=== PATIENT | male | born 1960 | race American Indian/Alaskan Native ===

== ENCOUNTER 2017-04-12 02:12 | Observation (INO) | payer MEDICAID ==
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
[2017-04-12 03:32] LABS: ALB/GLOB RATIO 1.2 (1.1-1.8); ALKALINE PHOSPHATASE 73 U/L (38-133); ALT/SGPT 36 U/L (7-56); AST/SGOT 25 U/L (15-59); BILIRUBIN,TOTAL 1.1 mg/dL (0.2-1.3); BLOOD UREA NITROGEN 27 mg/dL (7-21); CALCIUM 9.1 mg/dL (8.4-10.5); CARBON DIOXIDE 27 mmol/L (21-33); CHLORIDE 100 mmol/L (98-107); GFR AFRICAN-AMERICAN 50; GLUCOSE,RANDOM 128 mg/dL (70-110); POTASSIUM 3.9 mmol/L (3.6-5.0); SODIUM 140 mmol/L (132-148); TOTAL PROTEIN 7.4 g/dL (5.8-8.3)
[2017-04-12 03:45] LABS: TROPONIN I < 0.01 ng/mL
[2017-04-12 03:51] LABS: BASO # 0.01 K/mm3 (0.0-2.0); BASO % 0.1 % (0.0-3.0); EOS # 0.1 (0.0-0.7); EOS % 0.8 % (1.5-5.0); GRAN # 7.41 (1.4-6.5); GRAN % 69.7 % (50.0-68.0); HEMATOCRIT 38.5 % (42.0-52.0); LYMPH % 19.2 % (22.0-35.0); MEAN CELL VOLUME 79.4 fl (80.0-105.0); MEAN CORPUSCULAR HGB CONC 32.7 g/dl (31.0-37.0); MEAN PLATELET VOLUME 11.1 fl (7.0-11.0); MONO # 1.1 (0.1-0.6); MONO % 10.2 % (1.0-6.0); RED CELL DISTRIBUTION WIDTH 16.3 % (11.5-14.5); WHITE BLOOD COUNT 10.6 10^3/ul (4.5-11.0)
--- NOTE | 2017-04-12 04:17 | CT ---
EXAM: CT Head Without Intravenous Contrast CLINICAL HISTORY: 56 years old, male; Signs and symptoms; Dizziness; Patient HX: Possible head truama during syncope TECHNIQUE: Axial computed tomography images of the head/brain without intravenous contrast. All CT scans at this facility use one or more dose reduction techniques, viz.: automated exposure control; ma/kV adjustment per patient size (including targeted exams where dose is matched to indication; i.e. head); or iterative reconstruction technique. COMPARISON: No relevant prior studies available. FINDINGS: Brain: [id number] atrophy. No intracranial hemorrhage. No mass. Several scattered foci of decreased attenuation within periventricular/subcortical white matter. No definite edema. Ventricles: No hydrocephalus. Bones/joints: No calvarial fracture. Deformity of nasal bones, likely chronic. Soft tissues: Unremarkable. Sinuses: No acute sinusitis. Mastoid air cells: No mastoid effusion. Orbits: Unremarkable as visualized. IMPRESSION: 1. No intracranial hemorrhage. 2. Nonspecific white matter changes. Acute infarction may be CT occult within first 24 hours. If a focal deficit persists, consider followup CT or MRI for further evaluation. 3. Incidental/non-acute findings are described above.
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
[2017-04-12 06:23] LABS: URINE BILIRUBIN NEGATIVE (NEGATIVE); URINE BLOOD MODERATE (NEGATIVE); URINE GLUCOSE (UA) NEGATIVE (NEGATIVE); URINE KETONE NEGATIVE (NEGATIVE); URINE LEUKOCYTE ESTERASE SMALL Leu/uL (NEGATIVE); URINE PROTEIN 30 mg/dL (<30 mg/dL)
[2017-04-12 06:31] LABS: URINE APPEARANCE SL CLOUDY (CLEAR); URINE COLOR YELLOW (YELLOW)
[2017-04-12] MEDS ORDERED: Sodium Chloride 0.9% 1,000 ML IV STA (06:38)
[2017-04-12 07:05] LABS: URINE BACTERIA MANY (NEG)
[2017-04-12] MEDS: Sodium Chloride 0.9% 1,000 ML IV SCH ×2 (10:51→21:53)
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
[2017-04-12 12:42] LABS: BLOOD UREA NITROGEN 19 mg/dL (7-21); CALCIUM 8.5 mg/dL (8.4-10.5); CARBON DIOXIDE 25 mmol/L (21-33); CHLORIDE 103 mmol/L (98-107); GFR AFRICAN-AMERICAN > 60; GLUCOSE,RANDOM 192 mg/dL (70-110); POTASSIUM 3.5 mmol/L (3.6-5.0); SODIUM 139 mmol/L (132-148)
[2017-04-12 12:51] LABS: TROPONIN I < 0.01 ng/mL
[2017-04-12] MEDS ORDERED: Potassium Chloride 40 mEq/30 ml LIQ UD PO ONE (12:57)
--- NOTE | 2017-04-12 13:23 | CARD ---
APPROVED REPORT EKG Measurement Heart [id number] <Conclusion> Normal sinus rhythm Incomplete right bundle branch block Left anterior fascicular block Abnormal ECG
--- NOTE | 2017-04-12 13:41 | CARD ---
APPROVED REPORT EXAM: Two-dimensional and M-mode echocardiogram with Doppler and color Doppler. INDICATION 2D DIMENSIONS IVSd1.1 (0.7-1.1cm)LVDd5.1 (3.9-5.9cm) PWd1.1 (0.7-1.1cm)LVDs2.9 (2.5-4.0cm) FS (%) 44.1 %LVEF (%)75.1 (>50%) M-Mode DIMENSIONS Left Atrium (MM)4.20 (2.5-4.0cm)Aortic Root3.40 (2.2-3.7cm) Aortic Cusp Exc.2.10 (1.5-2.0cm) Aortic Valve AoV Peak Apdagnjx601.0cm/Soren Peak GR.10mmHg Mitral Valve MV E Dcaxcfvx01.8cm/sMV A Ynnqtwbd217.0cm/sE/A ratio0.8 TDI Lateral E' Peak V11.20cm/sMedial E' Peak V8.48cm/sE/Lateral E'8.3 E/Medial E'10.9 Tricuspid Valve TR Peak Vtcxpmss927is/sRAP [id number] Peak Gr.55mmHg [id number] LEFT VENTRICLE The left ventricle is normal size. There is normal left ventricular wall thickness. The left ventricular function is normal.EF-60-65% There is normal LV segmental wall motion. Transmitral Doppler flow pattern is Grade III-reversible restrictive diastolic dysfunction. No left ventricle thrombus noted on this study. There is no ventricular septal defect visualized. There is no left ventricular aneurysm. There is no mass noted in the left ventricle. RIGHT VENTRICLE The right ventricle is mildly dilated. There is normal right ventricular wall thickness. Systolic function is mildly reduced. ATRIA The left atrium is mildly dilated. The right atrium size is normal. The interatrial septum is intact with no evidence for an atrial septal defect. AORTIC VALVE The aortic valve is normal in structure. No aortic regurgitation is present. There is no aortic valvular stenosis. There is no aortic valvular vegetation. MITRAL VALVE The mitral valve is thickened but opens well. Mitral regurgitation is trace. There is no mitral valve stenosis. There is no evidence of mitral valve prolapse. TRICUSPID VALVE The tricuspid valve leaflets are thickened , but open well. There is moderate tricuspid regurgitation.RVSP-65 mmof h g. There is no tricuspid valve stenosis. There is no tricuspid valve prolapse or vegetation. PULMONIC VALVE The pulmonary valve is normal in structure. There is trace pulmonic valvular regurgitation. There is no pulmonic valvular stenosis. GREAT VESSELS The aortic root is normal in size. The ascending aorta is normal in size. The pulmonary artery is normal. The IVC is normal in size and collapses >50% with inspiration. PERICARDIAL EFFUSION There is no pleural effusion. There is no pericardial effusion. <Conclusion> The left ventricle is normal size. There is normal left ventricular wall thickness. The left ventricular function is normal.EF-60-65% Mitral regurgitation is trace. There is moderate tricuspid regurgitation.RVSP-65 mmof h g.
[2017-04-12] MEDS: cefTRIAXone 1 gm 1 GM/100 ML BAG IVPB SCH (14:14)
[2017-04-12 14:54] VITALS: BMI 19.5
[2017-04-12 18:31] LABS: TROPONIN I < 0.01 ng/mL
--- NOTE | 2017-04-12 23:53 | CON ---
DATE: 04/12/2017 CONSULT SERVICE: Cardiology. REASON FOR CONSULTATION: Cardiac evaluation, admitted with syncope. BRIEF CLINICAL HISTORY: This is a 56-year-old male with past medical history significant for hypertension, noncompliance with medication, did not get pills for more than a month. Admitted with syncope. 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 He said before that he started feeling dizzy and he passed out and coworkers noted that he was out for a minute or so, so brought him here. Thr patient denies any chest pain, shortness of breath, or any palpitations. PAST MEDICAL HISTORY: Significant for hypertension, questionable history of CVA, last medication he took it a month ago because he ran out, so did not fill the refill. FAMILY HISTORY: Noncontributory. SOCIAL HISTORY: He smokes a pack, lasts for 1 weeks, drinks 24 ounces of beer, 2 to 3 cans of beer every weekend. History of substance abuse of cocaine, last use of cocaine 1 month ago. REVIEW OF SYSTEMS: As per HPI. PHYSICAL EXAMINATION VITAL SIGNS: Temperature afebrile, heart rate 60, blood pressure 107/67. HEENT: PERRLA. Extraocular muscles intact. NECK: Supple. No carotid bruit or thyromegaly. CHEST: Clear to auscultation. HEART: S1 and S2, regular. ABDOMEN: Soft. EXTREMITIES: Clubbing and cyanosis negative. LABORATORY DATA: Blood workup as follows: WBC 10.6, hemoglobin 12.6, hematocrit 38.5, platelet count 166. Chemistry shows sodium 140, potassium 3.9, chloride 100, carbon dioxide of 27, anion gap of 15, BUN 27, creatinine 1.7, troponin 0.01. EKG shows normal sinus rhythm, rate of 55, incomplete right bundle, left anterior hemiblock. IMPRESSION: Syncope, dehydration possibly, rule out orthostatic hypotension, rule out structural heart disease, so far troponin negative. RECOMMENDATIONS: For his orthostatic hypotension, continue IV fluid. Echo to rule out any structural heart disease, lipid profile, TSH, hemoglobin A1c. Further recommendations depends on hospital course. We will do repeat SMA-7 to see BUN and creatinine and potassium. We will follow with you. Thank you Dr. Sibley for providing me the opportunity in taking care of the patient, Luis Martines. Lucina Madrid MD
[2017-04-13] MEDS ORDERED: Pantoprazole 40 mg EC Tab PO SCH (06:00)
[2017-04-13 06:21] VITALS: O2SAT 99
[2017-04-13 07:41] LABS: BASO # 0.01 K/mm3 (0.0-2.0); BASO % 0.1 % (0.0-3.0); EOS # 0.1 (0.0-0.7); EOS % 1.8 % (1.5-5.0); GRAN # 4.5 (1.4-6.5); GRAN % 61.5 % (50.0-68.0); HEMATOCRIT 36.8 % (42.0-52.0); LYMPH # 1.9 (1.2-3.4); LYMPH % 25.4 % (22.0-35.0); MEAN CORPUSCULAR HEMOGLOBIN 25.4 pg (25.0-35.0); MEAN CORPUSCULAR HGB CONC 31.8 g/dl (31.0-37.0); MEAN PLATELET VOLUME 10.9 fl (7.0-11.0); MONO # 0.8 (0.1-0.6); MONO % 11.2 % (1.0-6.0); RED CELL DISTRIBUTION WIDTH 16.5 % (11.5-14.5); WHITE BLOOD COUNT 7.3 10^3/ul (4.5-11.0)
[2017-04-13 07:52] LABS: CHOLESTEROL 73 mg/dL (130-200); MAGNESIUM 1.9 mg/dL (1.7-2.2); PHOSPHOROUS 2.3 mg/dL (2.5-4.5)
[2017-04-13 08:04] LABS: ALKALINE PHOSPHATASE 57 U/L (38-133); ALT/SGPT 29 U/L (7-56); AST/SGOT 25 U/L (15-59); BILIRUBIN,TOTAL 0.7 mg/dL (0.2-1.3); BLOOD UREA NITROGEN 12 mg/dL (7-21); CALCIUM 8.3 mg/dL (8.4-10.5); CARBON DIOXIDE 26 mmol/L (21-33); CHLORIDE 107 mmol/L (98-107); GFR AFRICAN-AMERICAN > 60; GLUCOSE,RANDOM 121 mg/dL (70-110); POTASSIUM 4.2 mmol/L (3.6-5.0); SODIUM 139 mmol/L (132-148); TOTAL PROTEIN 6.1 g/dL (5.8-8.3)
[2017-04-13] MEDS: cefTRIAXone 1 gm 1 GM/100 ML BAG IVPB SCH (09:50)
[2017-04-13 12:54] VITALS: BP 146/74; PULSE 40; RESP 18; TEMP 98.5
[2017-04-13] MEDS ORDERED: Potassium & Sodium Phosphate PO SCH (14:00)
[2017-04-13] MEDS: Sodium Chloride 0.9% 1,000 ML IV SCH (14:10)
--- NOTE | 2017-04-13 15:51 | CP.PCM.DIS ---
<DICK COTTON - Last Filed: 04/13/17 15:35> Provider - Provider Date of Admission: 04/12/17 04:54 Attending physician: Annia Sibley MD Consults: Cardio: Julius Neuro: Korya Time Spent in preparation of Discharge (in minutes): 45 Hospital Course - Lab Results Lab Results: Micro Results 04/12/17 05:34 Urine,Clean Catch Urine Culture - Preliminary Gram Negative Juan Antonio Most Recent Lab Values WBC 7.3 10^3/ul (4.5-11.0) D 04/13/17 07:30 RBC 4.60 10^6/uL (3.5-6.1) 04/13/17 07:30 Hgb 11.7 g/dL (14.0-18.0) L 04/13/17 07:30 Hct 36.8 % (42.0-52.0) L 04/13/17 07:30 MCV 80.0 fl (80.0-105.0) 04/13/17 07:30 MCH 25.4 pg (25.0-35.0) 04/13/17 07:30 MCHC 31.8 g/dl (31.0-37.0) 04/13/17 07:30 RDW 16.5 % (11.5-14.5) H 04/13/17 07:30 Plt Count 159 10^3/uL (120.0-450.0) 04/13/17 07:30 MPV 10.9 fl (7.0-11.0) 04/13/17 07:30 Gran % 61.5 % (50.0-68.0) 04/13/17 07:30 Lymph % (Auto) 25.4 % (22.0-35.0) 04/13/17 07:30 [place] % (Auto) 11.2 % (1.0-6.0) H 04/13/17 07:30 Eos % (Auto) 1.8 % (1.5-5.0) 04/13/17 07:30 Baso % (Auto) 0.1 % (0.0-3.0) 04/13/17 07:30 Gran # 4.50 (1.4-6.5) 04/13/17 07:30 Lymph # 1.9 (1.2-3.4) 04/13/17 07:30 [place] # 0.8 (0.1-0.6) H 04/13/17 07:30 Eos # 0.1 (0.0-0.7) 04/13/17 07:30 Baso # 0.01 K/mm3 (0.0-2.0) 04/13/17 07:30 Sodium 139 mmol/L (132-148) 04/13/17 07:30 Potassium 4.2 mmol/L (3.6-5.0) 04/13/17 07:30 Chloride 107 mmol/L (98-107) 04/13/17 07:30 Carbon Dioxide 26 mmol/L (21-33) 04/13/17 07:30 Anion Gap 10 (10-20) 04/13/17 07:30 BUN 12 mg/dL (7-21) 04/13/17 07:30 Creatinine 0.9 mg/dL (0.5-1.4) 04/13/17 07:30 Est GFR ( Amer) > 60 04/13/17 07:30 Est GFR (Non-Af Amer) > 60 04/13/17 07:30 Random Glucose 121 mg/dL (70-110) H 04/13/17 07:30 Calcium 8.3 mg/dL (8.4-10.5) L 04/13/17 07:30 Phosphorus 2.3 mg/dL (2.5-4.5) L 04/13/17 07:30 Magnesium 1.9 mg/dL (1.7-2.2) 04/13/17 07:30 Total Bilirubin 0.7 mg/dL (0.2-1.3) 04/13/17 07:30 AST 25 U/L (15-59) 04/13/17 07:30 ALT 29 U/L (7-56) 04/13/17 07:30 Alkaline Phosphatase 57 U/L (38-133) 04/13/17 07:30 Lactate Dehydrogenase 406 U/L (333-699) 04/12/17 17:45 Total Creatine Kinase 88 U/L (35-230) 04/12/17 17:45 Troponin I < 0.01 ng/mL 04/12/17 17:45 Total Protein 6.1 g/dL (5.8-8.3) 04/13/17 07:30 Albumin 3.1 g/dL (3.0-4.8) 04/13/17 07:30 Globulin 3.0 gm/dL 04/13/17 07:30 Albumin/Globulin Ratio 1.0 (1.1-1.8) L 04/13/17 07:30 Triglycerides 37 mg/dL (35-160) 04/13/17 07:30 Cholesterol 73 mg/dL (130-200) L 04/13/17 07:30 LDL Cholesterol Direct < 30 mg/dL (0-129) 04/13/17 07:30 HDL Cholesterol 35 mg/dL (29-60) 04/13/17 07:30 TSH 3rd Generation 1.10 mIU/mL (0.46-4.68) 04/13/17 07:30 Urine Color Yellow (YELLOW) 04/12/17 05:34 Urine Appearance Sl cloudy (CLEAR) 04/12/17 05:34 Urine pH 6.0 (4.7-8.0) 04/12/17 05:34 Ur Specific [place] 1.020 (1.005-1.035) 04/12/17 05:34 Urine Protein 30 mg/dL (<30 mg/dL) H 04/12/17 05:34 Urine Glucose (UA) Negative mg/dL (NEGATIVE) 04/12/17 05:34 Urine Ketones Negative mg/dL (NEGATIVE) 04/12/17 05:34 Urine Blood Moderate (NEGATIVE) H 04/12/17 05:34 Urine Nitrate Positive (NEGATIVE) H 04/12/17 05:34 Urine Bilirubin Negative (NEGATIVE) 04/12/17 05:34 Urine Urobilinogen 1.0 E.U./dL (<1 E.U./dL) H 04/12/17 05:34 Ur Leukocyte Esterase Small Murray/uL (NEGATIVE) H 04/12/17 05:34 Urine RBC 2 - 5 /hpf (0-2) 04/12/17 05:34 Urine WBC 5 - 10 /hpf (0-6) 04/12/17 05:34 Ur Epithelial Cells 1 - 3 /hpf (0-5) 04/12/17 05:34 Urine Bacteria Many (NEG) 04/12/17 05:34 Urine Other Fiber 04/12/17 05:34 Urine Opiates Screen Negative (NEGATIVE) 04/12/17 05:34 Urine Methadone Screen Negative (NEGATIVE) 04/12/17 05:34 Ur Barbiturates Screen Negative (NEGATIVE) 04/12/17 05:34 Ur Phencyclidine Scrn Negative (NEGATIVE) 04/12/17 05:34 Ur Amphetamines Screen Negative (NEGATIVE) 04/12/17 05:34 U Benzodiazepines Scrn Negative (NEGATIVE) 04/12/17 05:34 U Oth Cocaine Metabols Negative (NEGATIVE) 04/12/17 05:34 U Cannabinoids Screen Negative (NEGATIVE) 04/12/17 05:34 - Hospital Course Hospital Course: Pt is a 56 year old male with pmh sig for HTN, hx of syncopal episodes and cocaine use who presents to [facility] via EMS for syncopal episode. 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 He reports working on his feet without frequent bending over or lifting of heavy material. He states he passed out around 130pm. He states that witnesses denied telling him he had any visible shaking or seemed confused after the incident. Patient denies post ictal state, biting of tongue or trauma to head. He reports appropriate fluid intake. He reports history of at least 3 syncopal episodes in the past year. 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 Patient denies every seeing anyone to be worked up for possible causes of syncopal episodes. Patient denies ETOH intake today or illicit substance use. He denies chest pain , shortness of breath, abdominal pain, fever, chills, nausea or vomiting. In the ED, labs and imaging were obtained. Labs were significant for slightly elevated creatinine. Troponin negative x1. Urine drug screen negative. UA showed positive nitrates and leukocyte esterase. EKG showed NSR. Head CT was unremarkable. Pt was admitted for evaluation and treatment for syncopal event and UTI. Pt was given IV antibiotics for his UTI. Cardio was consulted and recommended echocardiogram, lipid profile, TSH, and hemoglobin A1C. Echo showed EF of 60-65%, trace mitral regurgitation, and moderate tricuspid regurgitation. Lipid panel and TSH were unremarkable. Neuro was consulted and suggested that syncopal event was likely neurocardiogenic or vaso-vagal. Neuro recommended tilt -table testing as outpatient. Today, patient was seen and examined at bedside. Pt denied any acute overnight events. Pt denied any further near-syncopal or syncopal events. Pt denied CP, SOB, n/v/d, chills, fevers, abdominal pain, LEHMAN, dizziness, dysuria, polyuria, or numbness/tingling. Medications were confirmed with pharmacy, [facility] in [place]. Pharmacologic causes for his syncopal event were ruled out after confirmation of his home medications. Pt remained stable today and was clear from cardio's standpoint. Pt was discharged and continued on his home medications. In addition, patient was given PO cipro for 3 days for his UTI. 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 Discharge Exam - Head Exam Head Exam: ATRAUMATIC, NORMAL INSPECTION, NORMOCEPHALIC - Eye Exam Eye Exam: EOMI, PERRL - ENT Exam ENT Exam: Mucous Membranes Moist - Neck Exam Neck exam: Full Rom - Respiratory Exam Respiratory Exam: Clear to PA & Lateral. absent: Rales, Rhonchi, Wheezes - Cardiovascular Exam Cardiovascular Exam: RRR, +S1, +S2. absent: Diastolic murmur, Gallop, Rubs, Systolic Murmur - GI/Abdominal Exam GI & Abdominal Exam: Soft. absent: Distended, Guarding, Rebound, Tenderness - Extremities Exam Extremities exam: normal inspection - Back Exam Back exam: NORMAL INSPECTION - Neurological Exam Neurological exam: Alert, CN II-XII Intact, Oriented x3 - Psychiatric Exam Psychiatric exam: Normal Affect, Normal Mood - Skin Skin Exam: Dry, Intact, Normal Color, Warm Discharge Plan - Discharge Medications Prescriptions: Ciprofloxacin [Cipro] 250 mg PO BID #6 tab - Follow Up Plan Condition: FAIR Disposition: HOME/ ROUTINE Instructions: Urinary Tract Infection in Men (DC), Urinary Tract Infection in Men (GEN), Syncope (DC), Syncope (GEN) Additional Instructions: 1. Follow up with marine surveyor as scheduled 2. Follow up with neurologist out patient within 1 week 3. Follow up with PMD within 1 week 4. Table tilt test 5. Take medication as prescribed 6. Continue home medications as prescribed 7. Avoid physical activity for 7 days due to risk of tendon rupture 8. Return to ED if symptoms/condition worsens, including but not limited to syncopal episode Referrals: Jefferson Will MD [Staff Provider] - Lucina Madrid MD [Staff Provider] - <Annia Sibley - Last Filed: 04/13/17 16:02> Provider - Provider Date of Admission: 04/12/17 04:54 Attending physician: Annia Sibley MD Hospital Course - Lab Results Lab Results: Micro Results 04/12/17 05:34 Urine,Clean Catch Urine Culture - Preliminary Gram Negative Juan Antonio Most Recent Lab Values WBC 7.3 10^3/ul (4.5-11.0) D 04/13/17 07:30 RBC 4.60 10^6/uL (3.5-6.1) 04/13/17 07:30 Hgb 11.7 g/dL (14.0-18.0) L 04/13/17 07:30 Hct 36.8 % (42.0-52.0) L 04/13/17 07:30 MCV 80.0 fl (80.0-105.0) 04/13/17 07:30 MCH 25.4 pg (25.0-35.0) 04/13/17 07:30 MCHC 31.8 g/dl (31.0-37.0) 04/13/17 07:30 RDW 16.5 % (11.5-14.5) H 04/13/17 07:30 Plt Count 159 10^3/uL (120.0-450.0) 04/13/17 07:30 MPV 10.9 fl (7.0-11.0) 04/13/17 07:30 Gran % 61.5 % (50.0-68.0) 04/13/17 07:30 Lymph % (Auto) 25.4 % (22.0-35.0) 04/13/17 07:30 [place] % (Auto) 11.2 % (1.0-6.0) H 04/13/17 07:30 Eos % (Auto) 1.8 % (1.5-5.0) 04/13/17 07:30 Baso % (Auto) 0.1 % (0.0-3.0) 04/13/17 07:30 Gran # 4.50 (1.4-6.5) 04/13/17 07:30 Lymph # 1.9 (1.2-3.4) 04/13/17 07:30 [place] # 0.8 (0.1-0.6) H 04/13/17 07:30 Eos # 0.1 (0.0-0.7) 04/13/17 07:30 Baso # 0.01 K/mm3 (0.0-2.0) 04/13/17 07:30 Sodium 139 mmol/L (132-148) 04/13/17 07:30 Potassium 4.2 mmol/L (3.6-5.0) 04/13/17 07:30 Chloride 107 mmol/L (98-107) 04/13/17 07:30 Carbon Dioxide 26 mmol/L (21-33) 04/13/17 07:30 Anion Gap 10 (10-20) 04/13/17 07:30 BUN 12 mg/dL (7-21) 04/13/17 07:30 Creatinine 0.9 mg/dL (0.5-1.4) 04/13/17 07:30 Est GFR ( Amer) > 60 04/13/17 07:30 Est GFR (Non-Af Amer) > 60 04/13/17 07:30 Random Glucose 121 mg/dL (70-110) H 04/13/17 07:30 Calcium 8.3 mg/dL (8.4-10.5) L 04/13/17 07:30 Phosphorus 2.3 mg/dL (2.5-4.5) L 04/13/17 07:30 Magnesium 1.9 mg/dL (1.7-2.2) 04/13/17 07:30 Total Bilirubin 0.7 mg/dL (0.2-1.3) 04/13/17 07:30 AST 25 U/L (15-59) 04/13/17 07:30 ALT 29 U/L (7-56) 04/13/17 07:30 Alkaline Phosphatase 57 U/L (38-133) 04/13/17 07:30 Lactate Dehydrogenase 406 U/L (333-699) 04/12/17 17:45 Total Creatine Kinase 88 U/L (35-230) 04/12/17 17:45 Troponin I < 0.01 ng/mL 04/12/17 17:45 Total Protein 6.1 g/dL (5.8-8.3) 04/13/17 07:30 Albumin 3.1 g/dL (3.0-4.8) 04/13/17 07:30 Globulin 3.0 gm/dL 04/13/17 07:30 Albumin/Globulin Ratio 1.0 (1.1-1.8) L 04/13/17 07:30 Triglycerides 37 mg/dL (35-160) 04/13/17 07:30 Cholesterol 73 mg/dL (130-200) L 04/13/17 07:30 LDL Cholesterol Direct < 30 mg/dL (0-129) 04/13/17 07:30 HDL Cholesterol 35 mg/dL (29-60) 04/13/17 07:30 TSH 3rd Generation 1.10 mIU/mL (0.46-4.68) 04/13/17 07:30 Urine Color Yellow (YELLOW) 04/12/17 05:34 Urine Appearance Sl cloudy (CLEAR) 04/12/17 05:34 Urine pH 6.0 (4.7-8.0) 04/12/17 05:34 Ur Specific [place] 1.020 (1.005-1.035) 04/12/17 05:34 Urine Protein 30 mg/dL (<30 mg/dL) H 04/12/17 05:34 Urine Glucose (UA) Negative mg/dL (NEGATIVE) 04/12/17 05:34 Urine Ketones Negative mg/dL (NEGATIVE) 04/12/17 05:34 Urine Blood Moderate (NEGATIVE) H 04/12/17 05:34 Urine Nitrate Positive (NEGATIVE) H 04/12/17 05:34 Urine Bilirubin Negative (NEGATIVE) 04/12/17 05:34 Urine Urobilinogen 1.0 E.U./dL (<1 E.U./dL) H 04/12/17 05:34 Ur Leukocyte Esterase Small Murray/uL (NEGATIVE) H 04/12/17 05:34 Urine RBC 2 - 5 /hpf (0-2) 04/12/17 05:34 Urine WBC 5 - 10 /hpf (0-6) 04/12/17 05:34 Ur Epithelial Cells 1 - 3 /hpf (0-5) 04/12/17 05:34 Urine Bacteria Many (NEG) 04/12/17 05:34 Urine Other Fiber 04/12/17 05:34 Urine Opiates Screen Negative (NEGATIVE) 04/12/17 05:34 Urine Methadone Screen Negative (NEGATIVE) 04/12/17 05:34 Ur Barbiturates Screen Negative (NEGATIVE) 04/12/17 05:34 Ur Phencyclidine Scrn Negative (NEGATIVE) 04/12/17 05:34 Ur Amphetamines Screen Negative (NEGATIVE) 04/12/17 05:34 U Benzodiazepines Scrn Negative (NEGATIVE) 04/12/17 05:34 U Oth Cocaine Metabols Negative (NEGATIVE) 04/12/17 05:34 U Cannabinoids Screen Negative (NEGATIVE) 04/12/17 05:34 Attending/Attestation - Attestation I have personally seen and examined this patient.: Yes I have fully participated in the care of the patient.: Yes I have reviewed all pertinent clinical information, including history, physical exam and plan: Yes Notes (Text): 04/13/17 15:55 56 year old male with past medical history of hypertension, prior syncopal episodes and substance abuse (cocaine) who presented after syncopal episode at work. He was admitted to telemetry unit for observation. Serial cardiac enzymes were negative. Orthostatics were negative as well. Echocardiogram was reviewed as above. CT head was unremarkable. Patient was seen by cardiology and neurology. He was counselled on risks of continued substance abuse give history of cocaine use. UTox however was negative. Patient is on antibiotics for UTI. UCx was growing gram negative rods. Patient is discharged on cipro. He is on lisinopril for hypertension. Patient will be discharged home today to follow up with his pmd. He states he has an upcoming appointment with his marine surveyor as well for possible tilt table test. Continue with antibiotics as prescribed. Counselled on risks of continued substance abuse. Annia Sibley MD Hospitalist.
--- NOTE | 2017-04-14 07:23 | PN ---
DATE: 04/14/2017 SUBJECTIVE: Denies any chest pain or shortness of breath or any palpitations. PHYSICAL EXAMINATION: GENERAL: Not in apparent distress, wanted to go home. VITAL SIGNS: Temperature afebrile, heart rate 40, blood pressure 146/74. HEENT: PERRLA intact. NECK: Supple. No carotid bruit. No thyromegaly. CHEST: Clear to auscultation. HEART: S1 and S2 regular. ABDOMEN: Soft. EXTREMITIES: Clubbing and cyanosis negative. LABORATORY DATA: Blood workup as follows: WBC *------*, hemoglobin 11, hematocrit 36.8, platelet count 159. Chemistry shows sodium 139, potassium 4.1, chloride 106, carbon dioxide 16, anion gap of *------*, creatinine 0.7. Total triglyceride 37, cholesterol 73, LDL 30, HDL 35, TSH 0.10. Troponin x3 negative. No evidence of acute OR. The patient had echocardiography done that showed normal size, normal wall thickness with ejection fraction 65%, trace mitral regurgitation, moderate tricuspid systolic pressure of 65. IMPRESSION: A 56-year-old male with hypertension, not on medication admitted with syncope, stopped taking medication for more than a month, very noncompliant, is scheduled for *------* admitted here with syncope. The patient was in *------*, the patient passed out. So far no evidence of acute coronary syndrome, so far no evidence of acute myocardial infarction, echo essentially good LV function. Moderate mitral regurgitation. Telemetry, no significant arrhythmia noted. RECOMMENDATIONS: I suggested to the patient to have a risk stratification as well as possible Holter. The patient wanted to do as an outpatient cardiology, discussed with the patient at length, the patient agreed to see beveller operator and receive medication and compliant with the medication. We will start low dose of Norvasc, because the patient is very noncompliant, not started any medication, now the blood pressure is a little bit on the higher side, we will start 5 mg from today. We will discuss with you. Also discussed with the patient at length that upon discharge the patient will follow up with beveller operator. Thank you *------* for providing an opportunity in taking care of the patient, Conrad. Lucina Madrid MD
== END 2017-04-13 15:47 | disposition home or self-care (01) ==
LOC: ED 02:12 → ERH 04:54 → 2RSO 06:38
PROVIDERS: ADMIT Internal Medicine; ATTEND Internal Medicine
DX: N39.0 Urinary tract infection, site not specified (principal); E86.0 Dehydration; I10 Essential (primary) hypertension; I08.1 Rheumatic disorders of both mitral and tricuspid valves; Z86.73 Personal history of transient ischemic attack (TIA), and cerebral infarction without residual deficits; Z91.14 Patient's other noncompliance with medication regimen; F17.200 Nicotine dependence, unspecified, uncomplicated; R55 Syncope and collapse; I45.10 Unspecified right bundle-branch block; E86.1 Hypovolemia; N28.9 Disorder of kidney and ureter, unspecified; Z87.898 Personal history of other specified conditions; B96.20 Unspecified Escherichia coli [E. coli] as the cause of diseases classified elsewhere
CPT/HCPCS: 36415; 70450; 80053; 80061; 80324; 80345; 80346; 80349; 80353; 80358; 80361; 81001; 82550; 82948; 83036; 83615; 83735; 83992; 84100; 84443; 84484; 85025; 87086; 87181; 93005; 93306; 96361; 96365; 96366; 96375; 99285; C9113; G0378; J0696; J3480; J7040